=== PATIENT | male | born 1955 | race Caucasian/White ===

== ENCOUNTER → 2020-04-20 10:04 | Outpatient (CLI) | payer BC, SELFPAY ==
--- NOTE | 2020-04-20 10:13 | DI.RAD.S_ITS ---
PROCEDURE: XR FOOT LT MIN 3V INDICATIONS: Poss Fx TECHNIQUE: 3 views of the foot were acquired. COMPARISON: None. FINDINGS: Bones: No displaced fractures or dislocations. No suspicious bony lesions. Mild to moderate degenerative changes are noted involving the forefoot joints, most pronounced involving the 1st metatarsophalangeal joint. Plantar and Achilles spurs are present. Mild flattening of the the 2nd metatarsal head probably is related to previous injury or Freiberg's infraction. Soft tissues: No tibiotalar joint effusion. Soft tissue swelling about the forefoot is identified. IMPRESSION: 1. No acute fracture of the left foot. 2. Mild to moderate degenerative changes of the foot. 3. Plantar and Achilles calcaneal spurs. Dictated by: Bola Hurtado M.D. on 04/20/2020 at 9:34 Approved by: Bola Hurtado M.D. on 04/20/2020 at 9:36
== END ==
PROVIDERS: PCP Naturopath; Referring Provider Student in an Organized Health Care Education/Training Program; Visit Provider Student in an Organized Health Care Education/Training Program
DX: M79.672 Pain in left foot (principal); M77.32 Calcaneal spur, left foot
CPT/HCPCS: 73630

== ENCOUNTER 2024-02-03 23:55 | Emergency (ER) | payer MEDICARE, OTHER, SELFPAY ==
[2024-02-04] VITALS (11 sets, daily range): BP systolic 193–242; BP diastolic 91–112; PULSE 46–67; RESP 16–18; TEMP 36.3; O2SAT 91–100; BMI 30.1
[2024-02-04] MEDS: ONDANSETRON 4 MG/2 ML INJ IV (00:27)
[2024-02-04] MEDS: KETOROLAC 30 MG/ML VIAL 15 MG IV (00:28)
[2024-02-04 00:30] LABS: Add Manual Diff / Slide Review NO; Basophils Absolute Auto 100 /uL (0-100); Basophils Percent Auto 0.5 % (0-2); Eosinophils Absolute Auto 0 /uL (0-450); Eosinophils Percent Auto 0.2 % (2-4); Hematocrit 43.6 % (41-53); Hemoglobin 14.2 g/dL (13.5-17.5); Lymphocytes Absolute Auto 1300 /uL (1100-4500); Lymphocytes Percent Auto 9.8 % (25-40); Mean Corpuscular HGB Conc 32.5 % (30-36); Mean Corpuscular Hemoglobin 30.1 PG (26-34); Mean Corpuscular Volume 92.7 fL (80-100); Monocytes Absolute Auto 500 /uL (0-900); Monocytes Percent Auto 3.8 % (3-14); Neutrophils Absolute Auto 11300 /uL (1500-7000); Neutrophils Percent Auto 85.7 % (50-75); Platelet Count 263 X10^3/uL (150-400); Red Cell Distribution Width 13.5 % (11.6-14.8); White Blood Cell Count 13.2 X10^3/uL (4.5-11.0)
[2024-02-04 00:41] LABS: Alanine Aminotransferase 39 IU/L (<50); Albumin Globulin Ratio 1.6 (1.0-2.8); BUN Creatinine Ratio 16.7 (6-22); Bilirubin Total 0.7 mg/dL (0.2-1.3); Blood Urea Nitrogen 18 mg/dL (9-20); Calcium 9.5 mg/dL (8.4-10.2); Carbon Dioxide 22 mmol/L (22-32); Chloride 108 mmol/L (98-107); Estimated Glomerular Filt Rate > 60 mL/min (>60); Globulin 3.1 g/dL (1.7-4.1); Glucose 193 mg/dL (80-110); Sodium 139 mmol/L (137-145); Total Protein 8.1 g/dL (6.3-8.2)
[2024-02-04 00:46] LABS: HEMOLYSIS 52 (0-50); Potassium 4.1 mmol/L (3.4-5.1)
[2024-02-04 00:47] LABS: Alkaline Phosphatase 108 U/L (38-126); Aspartate Aminotransferase 37 IU/L (17-59)
[2024-02-04 00:53] LABS: RBC Urine 1-5/HPF (0-5/HPF); Urine Volume 10mL (spun); WBC Urine None Seen (0-5/HPF)
[2024-02-04 00:54] LABS: Bacteria Urine None Seen; Culture Indicated Urine Cult Not Indicated; Squamous Epithelial Cell Urine 0-1 /HPF (0-5/HPF)
--- NOTE | 2024-02-04 01:33 | DI.CT.S_ITS ---
PROCEDURE: CT KIDNEY URETER BLADDER (KUB) INDICATIONS: left flank pain TECHNIQUE: Axial sections were acquired from the lung bases to the pubic symphysis. Coronal and sagittal reformats were performed. For radiation dose reduction, the following was used: automated exposure control, adjustment of mA and/or kV according to patient size. COMPARISON: None. FINDINGS: Image quality: Diagnostic. Lower Chest: Mild bibasilar atelectasis. Small hiatal hernia. URINARY: Right Kidney: Tiny punctate nonobstructing renal stones in the right kidney. No hydronephrosis. No perinephric stranding. Right Ureter: Right ureter is normal in course and caliber. No ureteral stone. Left Kidney: There is mild-moderate left hydro ureteral nephrosis. Mild perinephric stranding. There are several left-sided renal stones. Largest measures approximately 6 mm in size and measures approximately 600 Hounsfield units in density. Left Ureter: Left hydroureter with periureteral stranding secondary to an obstructing 4 mm distal left ureteral stone visualized at the left ureterovesicular junction. Bladder: Normal wall thickness. No stones. ABDOMEN: Liver: No contour-deforming solid mass. Gallbladder: No radiopaque gallstones or wall thickening. Biliary ducts: No biliary dilation. Pancreas: No ductal dilation. Spleen: Size is within normal limits. Adrenal Glands: No adrenal nodules. Stomach and Bowel: Normal colonic caliber, without significant wall thickening. Scattered colonic diverticula without acute inflammation. Normal appendix. Peritoneum: No abnormal intraperitoneal fluid. No free air. Ventral Wall: Moderate fat containing umbilical hernia without acute inflammation. Abdominal Nodes: No enlarged retroperitoneal or mesenteric lymph nodes. Vessels: Aorta and inferior vena cava are normal in size. PELVIS: Pelvic Organs: Unremarkable. Pelvic Nodes: Unremarkable. Miscellaneous: No inguinal hernias are seen. Bones: No acute vertebral body compression fractures. Multilevel spondylitic changes throughout the imaged spine. No suspicious osseous lesions. IMPRESSION: Mild-moderate left hydroureteronephrosis secondary to a 4 mm distal left ureteral stone visualized at the left ureterovesicular junction. Mild left periureteral and perinephric stranding. Recommend clinical/laboratory correlation for possible concurrent infectious uropathy. Additional nonobstructing bilateral renal stones. Colonic diverticulosis without acute diverticulitis. Normal appendix. Other chronic findings as above. Dictated by: Gabriel Coronado M.D. on 02/04/2024 at 2:02 Approved by: Gabriel Coronado M.D. on 02/04/2024 at 2:08
[2024-02-04] MEDS: HYDROMORPHONE 0.5 MG INJ IV (01:54)
--- NOTE | 2024-02-04 02:18 | ED_ITS ---
HPI - Back Pain/Injury General Chief Complaint: Back Pain/Injury Stated Complaint: Kidney stone Time Seen by Provider: 02/04/24 01:27 Source: patient History of Present Illness HPI Narrative: Patient is a 68-year-old male who presents with sudden onset left flank pain. He reports it is radiating around abdomen. It comes and goes in waves occasionally feels nauseous. He did have a kidney stone about 30 years ago but does not get them regularly. He is noted to be extremely hypertensive with blood pressure well above 200/100. He denies any sort of chest pain. He states that he is his blood normally when he is around Dr. he denies any fever or chills. Related Data Previous Rx's Medication Instructions Recorded hydrocodone 5 mg-acetaminophen 325 1 tab PO Q6H PRN pain #10 tabs 02/04/24 mg tablet ondansetron 4 mg disintegrating 4 mg PO Q8H PRN nausea and 02/04/24 tablet vomiting #10 tabs Allergies Allergy/AdvReac Type Severity Reaction Status Date / Time No Known Drug Allergies Allergy Verified 04/20/20 10:48 Patient History Social History (System 07/10/19 @ 09:05 by Mehnaz Delcid) Smoking Status: Never smoker Smoking Status: Never smoker alcohol intake frequency: a few times a week Substance Use Type: does not use Exam Initial Vital Signs Initial Vital Signs: Vital Signs Temperature 97.4 F L 02/04/24 00:03 Pulse Rate 51 L 02/04/24 00:03 Respiratory Rate 18 02/04/24 00:03 Blood Pressure 242/112 H 02/04/24 00:03 Pulse Oximetry 96 02/04/24 00:03 Oxygen Delivery Method Room Air 02/04/24 00:03 GENERAL: Alert 68 year old male and in no acute distress. HEENT: Head atraumatic,EOMI, pupils reactive, CARDIOVASCULAR: Regular rate and rhythm without murmurs, rubs or gallops. RESPIRATORY: Breath sounds equal bilaterally, no wheezes rales or rhonchi. ABDOMEN: Soft, minimal left lower quadrant pain no guarding no rebound : Mild left CVA tenderness EXTREMITIES: Normal range of motion, no clubbing or edema. Neurovascularly intact NEUROLOGICAL: Alert and oriented x4.Normal gait and speech. SKIN: Warm, dry, no laceration, no petechiae, no rashes or lesions. Course Orders Ordered: ED Orders 02/04/24 00:10 Urine Microscopic Stat 02/04/24 00:20 Complete Blood Count AUTO DIFF Stat Comprehensive Metabolic Panel Stat 02/04/24 01:33 CT kidney ureter bladder (KUB) Stat Discontinued Medications Hydrocodone Bitart/Acetaminophen (Hydrocodone/Acet 5/325 Prepack) 1 bottle MISC DIRECTED ONE Stop: 02/04/24 02:43 Last Admin: 02/04/24 03:20 Dose: 1 bottle Documented By: CARMELO Hydromorphone HCl (Hydromorphone 0.5 Mg Inj) 0.5 mg IV NOW ONE Stop: 02/04/24 01:34 Last Admin: 02/04/24 01:54 Dose: 0.5 mg Documented By: CARMELO Ketorolac Tromethamine (Ketorolac 30 Mg/Ml Vial) 15 mg IV NOW ONE Stop: 02/04/24 00:12 Last Admin: 02/04/24 00:28 Dose: 15 mg Documented By: VERONICA Ondansetron HCl (Ondansetron 4 Mg/2 Ml Inj) 4 mg IV NOW ONE Stop: 02/04/24 00:12 Last Admin: 02/04/24 00:27 Dose: 4 mg Documented By: VERONICA Ondansetron HCl (Ondansetron 4 Mg Odt Prepack) 1 bottle MISC NOW ONE Stop: 02/04/24 02:43 Last Admin: 02/04/24 03:20 Dose: 1 bottle Documented By: CARMELO Vital Signs Vital signs: Vital Signs - 8 hr 02/04/24 00:03 02/04/24 00:47 02/04/24 00:48 Temperature 97.4 F L Pulse Rate 51 L 49 L Respiratory Rate 18 Blood Pressure 242/112 H Pulse Oximetry 96 100 97 Oxygen Delivery Method Room Air 02/04/24 00:48 02/04/24 01:00 02/04/24 01:00 Temperature Pulse Rate 46 L Respiratory Rate Blood Pressure 217/105 H 223/102 H Pulse Oximetry 94 Oxygen Delivery Method 02/04/24 01:30 02/04/24 01:31 02/04/24 01:31 Temperature Pulse Rate 47 L 58 L Respiratory Rate Blood Pressure 231/106 H Pulse Oximetry 93 94 Oxygen Delivery Method 02/04/24 02:00 02/04/24 02:01 02/04/24 02:01 Temperature Pulse Rate 63 62 Respiratory Rate Blood Pressure 196/95 H Pulse Oximetry 91 92 Oxygen Delivery Method 02/04/24 02:30 02/04/24 02:31 02/04/24 02:31 Temperature Pulse Rate 67 56 L Respiratory Rate 18 Blood Pressure 193/91 H Pulse Oximetry 93 95 Oxygen Delivery Method 02/04/24 03:00 02/04/24 03:00 Temperature Pulse Rate 51 L Respiratory Rate 16 Blood Pressure 194/97 H Pulse Oximetry 94 Oxygen Delivery Method MDM - Back Pain/Injury Lab Data 02/04/24 00:20 02/04/24 00:20 Labs: Lab Results 02/04/24 02/04/24 Range/Units 00:10 00:20 WBC 13.2 H (4.5-11.0) X10^3/uL RBC 4.70 (4.5-5.9) X10^6/uL Hgb 14.2 (13.5-17.5) g/dL Hct 43.6 (41-53) % MCV 92.7 (80-100) fL MCH 30.1 (26-34) PG MCHC 32.5 (30-36) % RDW 13.5 (11.6-14.8) % Plt Count 263 (150-400) X10^3/uL Neut % (Auto) 85.7 H (50-75) % Lymph % (Auto) 9.8 L (25-40) % [place] % (Auto) 3.8 (3-14) % Eos % (Auto) 0.2 L (2-4) % Baso % (Auto) 0.5 (0-2) % Neut # (Auto) 27188 H (6003-5134) /uL Lymph # (Auto) 1300 (0824-3464) /uL [place] # (Auto) 500 (0-900) /uL Eos # (Auto) 0 (0-450) /uL Baso # (Auto) 100 (0-100) /uL Sodium 139 (137-145) mmol/L Potassium 4.1 (3.4-5.1) mmol/L Chloride 108 H (98-107) mmol/L Carbon Dioxide 22 (22-32) mmol/L BUN 18 (9-20) mg/dL Creatinine 1.08 (0.66-1.25) mg/dL Estimated GFR > 60 (>60) mL/min BUN/Creatinine Ratio 16.7 (6-22) Glucose 193 H (80-110) mg/dL Calcium 9.5 (8.4-10.2) mg/dL Total Bilirubin 0.7 (0.2-1.3) mg/dL AST 37 (17-59) IU/L ALT 39 (<50) IU/L Alkaline Phosphatase 108 (38-126) U/L Total Protein 8.1 (6.3-8.2) g/dL Albumin 5.0 (3.5-5.0) g/dL Globulin 3.1 (1.7-4.1) g/dL Albumin/Globulin Ratio 1.6 (1.0-2.8) Urine RBC 1-5/hpf (0-5/HPF) Urine WBC None seen (0-5/HPF) Ur Squamous Epith Cells 0-1 /hpf (0-5/HPF) Urine Bacteria None seen (None) Ur Culture Indicated? Cult not indicated Vol Urine Centrifuged 10ml (spun) Urine Dip Bedside Urine Glucose 100 mg/dl Bedside Urine Bilirubin - Negative Bedside Urine Ketone ++ 40 Urine Specific [place] 1.015 Bedside Urine Occult Blood + Bedside Urine pH 7.5 Bedside Urine Protein - Negative Bedside Urine Urobilinogen - Negative Bedside Urine Nitrite - Negative Bedside Urine Leukocytes - Negative Esterase Imaging Data CT scan - abdomen/pelvis: Radiologist's Impression: PROCEDURE: CT KIDNEY URETER BLADDER (KUB) INDICATIONS: left flank pain TECHNIQUE: Axial sections were acquired from the lung bases to the pubic symphysis. Coronal and sagittal reformats were performed. For radiation dose reduction, the following was used: automated exposure control, adjustment of mA and/or kV according to patient size. COMPARISON: None. FINDINGS: Image quality: Diagnostic. Lower Chest: Mild bibasilar atelectasis. Small hiatal hernia. URINARY: Right Kidney: Tiny punctate nonobstructing renal stones in the right kidney. No hydronephrosis. No perinephric stranding. Right Ureter: Right ureter is normal in course and caliber. No ureteral stone. Left Kidney: There is mild-moderate left hydro ureteral nephrosis. Mild perinephric stranding. There are several left-sided renal stones. Largest measures approximately 6 mm in size and measures approximately 600 Hounsfield units in density. Left Ureter: Left hydroureter with periureteral stranding secondary to an obstructing 4 mm distal left ureteral stone visualized at the left ureterovesicular junction. Bladder: Normal wall thickness. No stones. ABDOMEN: Liver: No contour-deforming solid mass. Gallbladder: No radiopaque gallstones or wall thickening. Biliary ducts: No biliary dilation. Pancreas: No ductal dilation. Spleen: Size is within normal limits. Adrenal Glands: No adrenal nodules. Stomach and Bowel: Normal colonic caliber, without significant wall thickening. Scattered colonic diverticula without acute inflammation. Normal appendix. Peritoneum: No abnormal intraperitoneal fluid. No free air. Ventral Wall: Moderate fat containing umbilical hernia without acute inflammation. Abdominal Nodes: No enlarged retroperitoneal or mesenteric lymph nodes. Vessels: Aorta and inferior vena cava are normal in size. PELVIS: Pelvic Organs: Unremarkable. Pelvic Nodes: Unremarkable. Miscellaneous: No inguinal hernias are seen. Bones: No acute vertebral body compression fractures. Multilevel spondylitic changes throughout the imaged spine. No suspicious osseous lesions. IMPRESSION: Mild-moderate left hydroureteronephrosis secondary to a 4 mm distal left ureteral stone visualized at the left ureterovesicular junction. Mild left periureteral and perinephric stranding. Recommend clinical/laboratory correlation for possible concurrent infectious uropathy. Additional nonobstructing bilateral renal stones. Colonic diverticulosis without acute diverticulitis. Normal appendix. Other chronic findings as above. Dictated by: Gabriel Coronado M.D. on 02/04/2024 at 2:02 MDM Narrative Medical decision making narrative: Patient is 68-year-old male with remote history of kidney stone presents today with left flank pain radiating around to the front. It came on suddenly comes and goes in waves. Blood work has been reviewed creatinine 1.0, WBC 13, no other significant labs urinalysis does show hematuria without evidence of UTI CT noncontrast KUB confirms 4 mm distal left ureteral stone at the UVJ with ureteral and perinephric stranding Patient's blood pressure is noted to be extremely elevated 220/100. He is on his side. Denies any other symptoms including headache chest pain or shortness of breath. He has not having any evidence of end-organ damage. No currently on blood pressure medication. He reports the blood pressure is always high around physicians and providers. At this time he is given Toradol and Dilaudid for his pain Dilaudid finally did bring down his blood pressure some the 190s over 90. Discussion with he and his he needs to monitor his blood pressure at home and it maybe an indication that he needs ongoing medication. However I do think some of elevation in blood pressure is due to pain from kidney stone. Due to severely elevated blood pressure dissection was considered but I think unlikely. He really is tender in his flank area no midline. Vessels are noted to normal aorta and inferior vena cava this is not truly diagnostic I do not think he is having dissection Discharge Plan Departure Patient Disposition: Home Clinical Impression: Kidney stone on left side Instructions: DI for Kidney Stones Activity Restrictions/Additional Instructions: *You have been diagnosed with kidney stone *What to do: At this time you do have a 4 mm left-sided kidney stone dissipate the passes with the next 24-48 hours. At this time blood pressure is noted to be quite high I do show you recommend that you monitor blood pressure at home keep a record of it please discuss with your PCP *Continue to take medications as directed Zofran 4 mg every 8 hours if Needed for nausea or vomiting [place] 1 tablet every 6 hours if needed for severe pain *Follow up with your primary care provider in 2-3 days or call [phone] *Return to ER if you should have increasing pain numbness tingling weakness [or] any new, worsening or concerning symptoms CONTROLLED SUBSTANCE DISCHARGE (Narcotoic/benzodiazepine/Flexeril/Phenergan) 1. You have been prescribed narcotic medications, it does have acetaminophen/Tylenol/paracetamol in it, DO NOT TAKE MORE THAN 4,00mg in 24 hours of Tylenol. TRAMADOL DOES NOT CONTAIN TYLENOL 2. Please understand that we cannot provide further refills of narcotics, benzodiazepines or controlled substances through the ED and her pain management will need to be through your provider. 3. While on these medications you cannot drive or operate heavy machinery. 4. You cannot sign legal documents or perform any duties such as this. 5. As long as you're taking opiate pain medications he should also be taking a stool softener such as Colace, Dulcolax, MiraLAX or prune juice, to help avoid constipation. Prescriptions: New hydrocodone-acetaminophen 5-325 mg tablet 1 tab PO Q6H PRN (Reason: pain) Qty: 10 0RF ondansetron 4 mg tablet,disintegrating 4 mg PO Q8H PRN (Reason: nausea and vomiting) Qty: 10 0RF Referrals: Gildardo Martinez ND [Primary Care Provider] - Stand Alone Forms: Patient Portal/API
[2024-02-04] MEDS: ONDANSETRON 4 MG ODT PREPACK 1 BOTTLE MISC (03:20)
[2024-02-04] MEDS: HYDROCODONE/ACET 5/325 PREPACK 1 BOTTLE MISC (03:20)
== END 2024-02-04 03:22 | disposition home or self-care (01) ==
PROVIDERS: Emergency Provider Emergency Medicine; PCP Naturopath
DX: N20.0 Calculus of kidney (principal); Z87.442 Personal history of urinary calculi
CPT/HCPCS: 36415; 74176; 80053; 81003; 81015; 85025; 96374; 96375; 99284; J1170; J1885; J2405